=== PATIENT | female | born 1945 | race Caucasian/White ===

== ENCOUNTER 2017-08-15 07:07 | Day surgery (SDC) | payer OTHER ==
[~2017-08-15 07:07] MED LIST: ATENOLOL25 MG PO; ATORVASTATIN CA20 MG PO; COZAAR50 MG PO; CYMBALTA60 MG PO; EMBEDA ER 30-11 EACH PO; ESTAZOLAM2 MG PO; FOLIC ACID1 MG PO; LEFLUNOMIDE20 MG PO; SERTRALINE HCL100 MG; SYNTHROID150 MCG PO; ZYPREXA2.5 MG PO
== END 2017-08-15 12:50 | disposition home or self-care (01) ==
LOC: CIR.AMB 07:07
DX: M47.26 Other spondylosis with radiculopathy, lumbar region (principal)